=== PATIENT | female | born 1940 | race Caucasian/White ===

== ENCOUNTER 2022-05-29 18:24 | Observation (INO) ==
[2022-05-29] MEDS ORDERED: SODIUM CHLORIDE 0.9% 1,000 ML IV STA (19:21)
[2022-05-29 19:27] LABS: Basophils # 0.1 10*3/uL (0.0-0.2); Basophils % 0.7 % (0.0-0.8); Eosinophils # 0.1 10*3/uL (0.0-0.87); Eosinophils % 1.6 % (0.00-10.9); Hematocrit 39.1 VOL% (35.7-47.0); Hemoglobin 13.7 GM/DL (12.0-16.0); Immature Granulocytes % 0.7 %; Immature Granulocytes Absolute 0.05 #; Lymphocytes # 1.5 10*3/uL (1.4-4.0); Mean Corpuscular Volume 88.9 FL (87-102); Mean Platelet Volume 10.2 FL (9.6-12.0); Monocytes # 0.5 10*3/uL (0.11-0.8); Monocytes % 6.8 % (1.7-12.7); Neutrophils % 69.2 % (38.7-73.9); Platelet Count 208 T/CUMM (130-400); Red Cell Distribution Width 12.7 % (9.3-17.3); White Blood Count 7.3 T/CUMM (4-12)
[2022-05-29 19:33] LABS: INR 1.1; PT Patient Result 11.7 SECS (10.1-12.1)
[2022-05-29 20:19] LABS: Albumin 3.9 G/DL (3.4-5.0); Bilirubin,Total 0.4 MG/DL (0.20-1.00); Calcium 10.5 MG/DL (8.5-10.1); Osmolality,Calculated 265.4 MOS/KG (273-304); Potassium 3.3 MMOL/L (3.5-5.1); Total Protein 7.4 G/DL (6.4-8.2)
[2022-05-29] MEDS ORDERED: DEXTROSE 50% 25 GM/50 ML VIAL IV STA (20:25)
[2022-05-29] MEDS ORDERED: DEXTROSE 50% 25 GM/50 ML SYRINGE IV STA (20:27)
[2022-05-29] MEDS ORDERED: diphenhydrAMINE CAP 25 MG CAPSULE PO PRN (20:40)
[2022-05-29] MEDS ORDERED: NICOTINE 21 MG/24 HR PATCH TRANSDERM PRN (20:40)
[2022-05-29] MEDS ORDERED: ACETAMINOPHEN 325 MG TABLET PO PRN (20:40)
[2022-05-29] MEDS ORDERED: ONDANSETRON 4 MG/2 ML VIAL IV PRN (20:40)
[2022-05-29] MEDS ORDERED: hydrALAZINE 20 MG/1 ML VIAL IV PRN (20:40)
[2022-05-29] MEDS ORDERED: GLUCAGON 1 MG VIAL IM PRN (20:40)
[2022-05-29] MEDS ORDERED: guaiFENesin/DM ER 600-30 MG TABLET PO PRN (20:40)
[2022-05-29] MEDS ORDERED: DEXTROSE 10% 250 ML BAG IV STA (20:42)
[2022-05-29] MEDS ORDERED: DEXTROSE 10% 250 ML BAG IV PRN (20:50)
[2022-05-29] MEDS ORDERED: DEXTROSE 5% NACL 0.9% 1,000 ML IV SCH (21:00)
[2022-05-29 21:03] LABS: Glucose,Urine (UA) Negative (Negative); Ketones,Urine Negative (Negative); Nitrite,Urine Positive (Negative); Protein,Urine Negative (Negative); Urine Appearance Clear (Clear); Urine Color Yellow (Yellow)
[2022-05-29 21:04] LABS: Bilirubin,Urine Negative (Negative); Blood, Urine Negative (Negative); Urine Urobilinogen 0.2 eU/dL (<2.0)
[2022-05-29 21:08] LABS: Bacteria,Urine Occasional /HPF (Few); Mucus,Urine Occasional /LPF (Occasional)
[2022-05-29 21:48] LABS: Barbiturates Screen,Urine Negative (Negative); Benzodiazepines Screen,Urine Positive (Negative); Cannabinoid Screen,Urine Negative (Negative); Opiate Screen,Urine Negative (Negative); Phencyclidine Screen,Urine Negative (Negative)
[2022-05-30] MEDS ORDERED: POTASSIUM CHLORIDE 20 MEQ TABLET PO ONE (00:32)
[2022-05-30 05:42] LABS: Basophils % 0.6 % (0.0-0.8); Eosinophils # 0.2 10*3/uL (0.0-0.87); Eosinophils % 2.9 % (0.00-10.9); Hematocrit 38.9 VOL% (35.7-47.0); Hemoglobin 13.2 GM/DL (12.0-16.0); Immature Granulocytes % 0.3 %; Immature Granulocytes Absolute 0.02 #; Lymphocytes % 29.9 % (21.3-54.2); Mean Corpuscular HGB Conc 33.9 GM/DL (32-36); Mean Corpuscular Volume 90.3 FL (87-102); Monocytes # 0.6 10*3/uL (0.11-0.8); Monocytes % 8.8 % (1.7-12.7); Neutrophils % 57.5 % (38.7-73.9); Platelet Count 186 T/CUMM (130-400); Red Blood Count 4.31 MC/CUMM (3.8-5.5); Red Cell Distribution Width 12.8 % (9.3-17.3); White Blood Count 6.6 T/CUMM (4-12)
[2022-05-30 06:08] LABS: Calcium 9.8 MG/DL (8.5-10.1); Osmolality,Calculated 271.1 MOS/KG (273-304)
[2022-05-30 06:10] LABS: Calcium 9.8 MG/DL (8.5-10.1); Osmolality,Calculated 270.2 MOS/KG (273-304); Potassium 3.8 MMOL/L (3.5-5.1)
[2022-05-30] MEDS ORDERED: atenoloL 50 MG TABLET PO SCH (09:00)
[2022-05-30] MEDS ORDERED: MULTIVITAMIN (CENTRUM) TABLET PO SCH (09:00)
[2022-05-30] MEDS ORDERED: ASPIRIN EC 81 MG TABLET PO SCH (09:00)
[2022-05-30] MEDS ORDERED: PANTOPRAZOLE 40 MG TABLET PO SCH (09:00)
[2022-05-30] MEDS ORDERED: CHLORTHALIDONE 25 MG TABLET PO SCH (09:00)
[2022-05-30] MEDS ORDERED: MAGNESIUM SULF RIDER 2 GM/50 ML PREMIX IV ONE (09:37)
[2022-05-30 11:29] VITALS: BP 142/82
[2022-05-30] MEDS ORDERED: POTASSIUM CHLORIDE 10 MEQ TABLET PO SCH (21:00)
[2022-05-31] MEDS ORDERED: metFORMIN 500 MG TABLET PO SCH (09:00)
== END 2022-05-30 12:39 | disposition home or self-care (01) ==
LOC: EDBD → EDUNIT# → N.3E 18:24 → N.ED 18:24 → N.3E 23:00
PROVIDERS: ADMIT Emergency Medicine; ATTEND Emergency Medicine